=== PATIENT | female | born 1965 | race American Indian/Alaskan Native ===

== ENCOUNTER 2019-01-06 07:03 | Day surgery (SDC) | payer BC ==
[2019-01-06] MEDS ORDERED: NACL 0.9% 1000 ML 1,000 ML IV SCH (08:00)
[2019-01-06] MEDS ORDERED: DIPRIVAN 10 MG/ML IV ONE ×2 (08:38)
--- NOTE | 2019-01-06 09:00 | Procedure Note ---
Date of procedure: 01/06/19 Pre-op diagnosis: Colon Polyp Screening Post-op diagnosis: other (No Colon Polyps noted/ Moderate, Left Colon Diverticular Disease) Procedure: Colonoscopy Anesthesia: MAC Surgeon: MAGGIE HOLGUIN Estimated blood loss: none Pathology: none Condition: stable Disposition: same day (Resume home medication/ Encourage fiber intake and follow up in 1 to 2 weeks ([phone]))
[2019-01-06 09:33] VITALS: BP 119/67
--- NOTE | 2019-01-06 10:39 | Anesthesia Consultation ---
Anesthesia Consult and Med Hx Date of service: 01/06/19 - Airway Anesthetic Teeth Evaluation: Partials ROM Head & Neck: Adequate Mental/Hyoid Distance: Adequate Mallampati Class: Class II Intubation Access Assessment: Good - Pulmonary Exam CTA: Yes - Cardiac Exam Cardiac Exam: RRR - Pre-Operative Health Status ASA Pre-Surgery Classification: ASA2 Proposed Anesthetic Plan: MAC - Pulmonary Hx Smoking: No - Cardiovascular System Hx Hypertension: Yes - Endocrine Hx Non-Insulin Dependent Diabetes: Yes
--- NOTE | 2019-01-06 10:40 | Anesthesia Day of Surgery ---
Anesthesia Day of Surgery - Day of Surgery Patient Examined: Yes Patient H&P Reviewed: Yes Patient is NPO: Yes
--- NOTE | 2019-01-06 13:06 | Operative Report ---
PROCEDURE: Colonoscopy. INDICATIONS: This is a 53-year-old -[place] female with an underlying history of diabetes mellitus, hypertension, family history of cancer. The patient's father had some form of cancer. Colonoscopy was done because of her age as part of colon polyps, screening procedure was done after getting informed consent with MAC anesthesia. Initial rectal exam was unremarkable. Instrument was passed through the rectum onto the cecum, which was identified with the ileocecal valve and the appendiceal orifice. Visualization was fair to good. There was a solitary diverticula noted in the cecum. The remaining part of the cecum and ascending colon showed normal mucosa. There were a few scattered diverticula noted in the transverse colon and moderate diverticular disease noted in the left colon, one or two of which were deep and the rectum on the retroverted view appeared normal. There was no evidence of any polyps or any evidence of any colitis. There were no biopsies done and no bleeding or complications associated with the procedure. ASSESSMENT: Colon polyp screening, family history of cancer and the patient's father had cancer. No colon polyps noted. Moderate scattered diverticular disease, most pronounced in the left colon. Again, there was no bleeding or complications associated with the procedure. PLAN: The patient will be encouraged to take fiber supplements and asked to follow up in the office in 1-2 weeks' time and resume her home medications if possible. RN, Anne Alcantar, was in the room throughout the entirety of this procedure. Thank you for the kind referral. JOB# [id number] KAILASH/LUIS
== END 2019-01-06 07:04 | disposition home or self-care (01) ==
LOC: GIO 07:03
DX: Z12.11 Encounter for screening for malignant neoplasm of colon (principal); K57.30 Diverticulosis of large intestine without perforation or abscess without bleeding; I10 Essential (primary) hypertension; E11.9 Type 2 diabetes mellitus without complications; Z90.710 Acquired absence of both cervix and uterus; Z80.8 Family history of malignant neoplasm of other organs or systems; Z79.899 Other long term (current) drug therapy
CPT/HCPCS: 45378; 82962; J2704; J7030